=== PATIENT | female | born 1960 ===

== ENCOUNTER 2018-08-26 03:10 | Emergency (ER) | payer OTHER ==
[~2018-08-26] VITALS: Ht 167.6 cm; Wt 74.8 kg
[~2018-08-26 03:10] MED LIST: DILTIAZEM HCL30 MG; ORPH100T PO
[2018-08-26] MEDS ORDERED: TOPROL XL25 M1 (03:39)
[2018-08-26] MEDS ORDERED: PEPCID40 MG PO (08:03)
[2018-08-26] MEDS ORDERED: PROTONIX40 MG PO (08:03)
== END 2018-08-26 08:13 | disposition home or self-care (01) ==
LOC: ER 03:10
DX: J11.1 Influenza due to unidentified influenza virus with other respiratory manifestations (principal)